=== PATIENT | female | born 1960 | race Caucasian/White ===

== ENCOUNTER 2020-02-03 11:07 | Outpatient (CLI) | payer BC, SELFPAY ==
--- NOTE | 2020-02-03 11:16 | MM_ITS ---
WS: [id number] BILATERAL DIGITAL SCREENING MAMMOGRAPHY WITH CAD CLINICAL INFORMATION: SCREEN HISTORY: Screening mammogram. No current complaints. COMPARISON: TECHNIQUE: Bilateral CC and MLO views. FINDINGS: Scattered fibroglandular densities bilaterally. No suspicious focal mass, asymmetry, calcifications, or architectural distortion. No evidence of malignancy. MM/[id number] IMPRESSION: BI-RADS: 1-Negative FOLLOW UP: 1 Year Follow-up Recommend return to annual screening mammography..
== END 2020-02-03 11:08 | disposition home or self-care (01) ==
LOC: RADSHAW 11:12
PROVIDERS: PCP Internal Medicine; Visit Provider Internal Medicine
DX: Z12.31 Encounter for screening mammogram for malignant neoplasm of breast (principal)
CPT/HCPCS: 77067

== ENCOUNTER 2020-02-28 13:42 | Outpatient (CLI) | payer BC, SELFPAY ==
--- NOTE | 2020-02-28 13:48 | USCV_ITS ---
Sowmya Rangel Age: 59 Gender: F : 1960 Exam Date: 02/28/2020 14:01 Ordering Phys: Krysta Awad MD Technologist: Denice Mullen Exam Location: [facility] – [place] Indication: CEREBROVASCULAR DX Risk Factors: Previous Vascular Surgery: Right Brachial BP: / Left Brachial BP: / Right Left Velocity (cm/s) Spectral Plaque Velocity (cm/s) Spectral Plaque Syst/Diast Broadening Syst/Diast Broadening 124.60/32.00 Prox CCA 106.90/ 34.20 101.40/28.70 Mid CCA 72.80 / 26.50 77.20/ 18.70 Distal CCA 79.40 / 25.40 44.30/ 16.30 Prox ICA 67.30 / 9.90 90.90/ 32.60 Mid ICA 71.70 / 28.70 72.20/ 34.20 Distal ICA 69.50 / 28.70 87.10 ECA 101.40 0.90 ICA/CCA 0.98 Antegrade Vertebral Antegrade 59.80/ 18.60 cm/s 71.70/ 22.10 cm/s Tri Subclavian Tri 80.00 125.7 0 CONCLUSIONS Right ICA stenosis <50%. Mild atheromatous plaque right carotid bulb/ICA. Left ICA stenosis <50%. Mild atheromatous plaque left carotid bulb/ICA. Normal antegrade Doppler flow noted in the right vertebral artery. Normal antegrade Doppler flow noted in the left vertebral artery. Db Lauren MD (Electronically Signed) Final Date: 28 February 2020 15:38 S
== END 2020-02-28 13:43 | disposition home or self-care (01) ==
PROVIDERS: PCP Internal Medicine; Visit Provider Internal Medicine
DX: I67.9 Cerebrovascular disease, unspecified (principal); E78.5 Hyperlipidemia, unspecified; R42 Dizziness and giddiness
CPT/HCPCS: 93880

== ENCOUNTER 2021-02-19 08:48 | Outpatient (CLI) | payer OTHER, SELFPAY ==
--- NOTE | 2021-02-19 08:59 | MM_ITS ---
WS: [id number] BILATERAL DIGITAL SCREENING MAMMOGRAPHY WITH CAD CLINICAL INFORMATION: SCREENING HISTORY: Screening mammogram. No current complaints. COMPARISON: February 03, 2020 TECHNIQUE: Bilateral CC and MLO views. FINDINGS: Scattered fibroglandular densities bilaterally. No suspicious focal mass, asymmetry, calcifications, or architectural distortion. No evidence of malignancy. MM/[id number] IMPRESSION: BI-RADS: 1-Negative FOLLOW UP: 1 Year Follow-up Recommend return to annual screening mammography.
== END 2021-02-19 08:49 | disposition home or self-care (01) ==
LOC: RADSHAW 08:52
PROVIDERS: PCP Internal Medicine; Visit Provider Internal Medicine
DX: Z12.31 Encounter for screening mammogram for malignant neoplasm of breast (principal)
CPT/HCPCS: 77067

== ENCOUNTER 2022-03-15 14:49 | Outpatient (CLI) | payer OTHER, SELFPAY ==
--- NOTE | 2022-03-15 15:05 | MM_ITS ---
WS: [id number] BILATERAL 3D TOMOSYNTHESIS DIGITAL SCREENING MAMMOGRAPHY WITH CAD CLINICAL INFORMATION: SCREEN HISTORY: Screening mammogram. No current complaints. COMPARISON: None. TECHNIQUE: Bilateral CC and MLO views. FINDINGS: Scattered fibroglandular densities bilaterally. No suspicious focal mass, asymmetry, calcifications, or architectural distortion. No evidence of malignancy. MM/[id number] IMPRESSION: BI-RADS: 1-Negative FOLLOW UP: 1 Year Follow-up Recommend return to annual screening mammography.
== END 2022-03-15 14:50 | disposition home or self-care (01) ==
LOC: RAD 14:50
PROVIDERS: PCP Internal Medicine; Visit Provider Internal Medicine
DX: Z12.31 Encounter for screening mammogram for malignant neoplasm of breast (principal)
CPT/HCPCS: 77063; 77067